=== PATIENT | female | born 1950 | race Caucasian/White ===

== ENCOUNTER → 2017-02-09 | Outpatient (CLI) | payer MEDICARE ==
[~2017-02-09] MED LIST: ACET325T14 PO; AMLO5TAB2 PO; ASPI-496 PO; ASPI-515 PO; BETA2500 PO; CLON0.1T PO; CYAN10002 SQ; CYCL-259 PO; DIGO250T PO; EZET10TA3 PO; FURO-93 PO; FURO20TA3 PO; HYDR-3138 PO; METO25TA35 PO; METO50TA82 PO; OMNIPAQUE 350 MG/ML, 150 ML BOTTLE ONE; PARI1CAP PO; POTA10TA11 PO; POTA10TA90 PO; POTA20TA14 PO; PROP50TA3 PO; RIVA20TA PO; [UNRECOGNIZED DRUG - OTHER] PO
== END | disposition home or self-care (01) ==
LOC: CFH 10:33
PROVIDERS: ATTEND Physician Assistant
DX: D25.9 Leiomyoma of uterus, unspecified (principal); K76.89 Other specified diseases of liver; M51.36 Other intervertebral disc degeneration, lumbar region; M16.0 Bilateral primary osteoarthritis of hip; Z90.49 Acquired absence of other specified parts of digestive tract
CPT/HCPCS: 74178; Q9967

== ENCOUNTER 2019-10-13 19:36 | Emergency (ER) | payer MEDICARE ==
[~2019-10-13] VITALS: Ht 160 cm; Wt 103.7 kg
[~2019-10-13 19:36] MED LIST changes: +AMLO-150 PO; -AMLO5TAB2 PO; -CLON0.1T PO; +CLON0.1T22 PO; -EZET10TA3 PO; +EZET10TA70 PO; -HYDR-3138 PO; +HYDR-3237 PO; -OMNIPAQUE 350 MG/ML, 150 ML BOTTLE ONE; +POTA10TA6 PO; -POTA10TA90 PO
--- NOTE | 2019-10-13 19:44 | NUR ---
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
[2019-10-13 20:21] LABS: BASOPHILS # (AUTO) 0.02 x10^3/uL (0-0.1); BASOPHILS % (AUTO) 0 % (0-1); EOSINOPHILS # (AUTO) 0.06 x10^3/uL (0-0.4); EOSINOPHILS % (AUTO) 1 % (1-7); LYMPHOCYTES # (AUTO) 1.95 x10^3/uL (1-3.4); LYMPHOCYTES % (AUTO) 28 % (22-44); MD NO; MEAN CORPUSCULAR HEMOGLOBIN 29.1 pg (27.0-34.8); MEAN CORPUSCULAR HGB CONC 32.8 g/dL (32.4-35.8); MEAN CORPUSCULAR VOLUME 88.9 fL (80-100); MEAN PLATELET VOLUME 7.1 fL (7.4-10.4); MONOCYTES % (AUTO) 13 % (2-9); NEUTROPHILS # (AUTO) 4.08 x10^3/uL (1.8-6.8); NEUTROPHILS % (AUTO) 58 % (42-75); PLATELET COUNT 210 x10^3/uL (130-400); RED BLOOD COUNT 5.42 x10^6/uL (3.82-5.3); RED CELL DISTRIBUTION WIDTH 14.1 % (9.6-15.2)
[2019-10-13 20:33] LABS: ALBUMIN 3.3 g/dL (3.4-5.0); ANION GAP 6 mmol/L (5-15); CALCIUM 8.7 mg/dL (8.5-10.1); CHLORIDE 101 mmol/L (98-107); CREATININE 1.03 mg/dL (0.55-1.02)
[2019-10-13 20:37] LABS: TROPONIN I < 0.015 ng/mL (0.000-0.045)
--- NOTE | 2019-10-13 23:51 | NUR ---
VS RE-DONE@ [id number]
--- NOTE | 2019-10-14 00:05 | NUR ---
RESEARCH CHEF: PT AMBULATED STEADILY TO ROOM FROM [facility]
--- NOTE | 2019-10-14 00:14 | NUR ---
PT PRESENTED WITH C/O CHEST PAIN ON LEFT STERNAL BORDER WITH NO RADIATION,AND DIARRHEA, CABALLERO, DENIES SOB. PATIENT IS ON ELOQUIS, HAS PACEMAKER FOR AFIB PLACED 3 YEARS AGO. PT NOW CURRENTLY DENIES CP, SOB. MONITORS APPLIED, SIDERAIL SUP X2, CALL LIGHT WITHIN REACH. ERP AT BEDSIDE FOR EVAL
[2019-10-14 00:26] VITALS: BP 151/79
[2019-10-14] MEDS ORDERED: APIX5TAB PO (00:30)
[2019-10-14] MEDS ORDERED: OXYB5TAB2 PO (00:30)
[2019-10-14] MEDS ORDERED: PROP50TA3 PO (00:30)
[2019-10-14 00:46] LABS: TROPONIN I < 0.015 ng/mL (0.000-0.045)
--- NOTE | 2019-10-14 01:02 | NUR ---
TASK RN: DC EDUCATION PROVIDED, PT DEMONSTRATES UNDERSTANDING. PT AMBULATED STEADILY TO DC WITH RN AND SO
== END 2019-10-14 01:04 | disposition home or self-care (01) ==
LOC: ED 10-14 00:02
DX: R07.89 Other chest pain (principal); I48.20 Chronic atrial fibrillation, unspecified; I11.0 Hypertensive heart disease with heart failure; I50.9 Heart failure, unspecified; Z90.49 Acquired absence of other specified parts of digestive tract
CPT/HCPCS: 36415; 71046; 80048; 82040; 84484; 85025; 93005; 99284

== ENCOUNTER → 2019-11-10 | Outpatient (CLI) | payer MEDICARE ==
[~2019-11-10] MED LIST changes: +APIX5TAB PO; -BETA2500 PO; -DIGO250T PO; +DIGO250T3 PO; +OXYB-39 PO; +[UNRECOGNIZED DRUG - CODE] PO
== END | disposition home or self-care (01) ==
LOC: CVU 09:23
PROVIDERS: ATTEND Physician Assistant Medical
DX: I08.3 Combined rheumatic disorders of mitral, aortic and tricuspid valves (principal); I11.9 Hypertensive heart disease without heart failure; I48.0 Paroxysmal atrial fibrillation
CPT/HCPCS: 93306; 93880

== ENCOUNTER → 2019-12-14 | Outpatient (CLI) | payer MEDICARE ==
[~2019-12-14] MED LIST changes: +REGADENOSON 0.4 MG/5 ML SYRINGE ONE
== END | disposition home or self-care (01) ==
LOC: CFH 12:09
PROVIDERS: ATTEND Physician Assistant Medical
DX: I48.0 Paroxysmal atrial fibrillation (principal); I10 Essential (primary) hypertension; R42 Dizziness and giddiness
CPT/HCPCS: 78452; 93017; A9502; J2785